=== PATIENT | female | born 1985 | race Two or more races ===

== ENCOUNTER 2023-07-24 04:59 | Day surgery (SDC) | payer OTHER ==
[2023-07-23 10:15] VITALS: BMI 25.9
[2023-07-24] MEDS ORDERED: FENTANYL CITRATE/PF 50 MCG/ML VIAL ONE (11:25)
[2023-07-24] MEDS ORDERED: PROPOFOL 20 ML ONE (11:25)
[2023-07-24] MEDS ORDERED: MIDAZOLAM HCL 2 MG/2 ML SINGLE DOSE VIAL ONE (11:25)
[2023-07-24] MEDS ORDERED: ceFAZolin SODIUM 1 GM VIAL IVPB ONE (11:50)
[2023-07-24] MEDS ORDERED: ceFAZolin SODIUM 1 GM VIAL ONE ×2 (11:51)
[2023-07-24] MEDS ORDERED: DEXAMETHASONE SOD PHOSPHATE 4 MG/1 ML VIAL ONE (11:51)
[2023-07-24] MEDS ORDERED: ONDANSETRON 4 MG/2 ML VIAL ONE (11:51)
[2023-07-24] MEDS ORDERED: KETOROLAC TROMETHAMINE 30 MG/1 ML VIAL ONE (11:51)
[2023-07-24] MEDS ORDERED: LIDOCAINE HCL 1%, 10 MG/ML (20ML VIAL) INF ONE (11:58)
[2023-07-24] MEDS ORDERED: oxyCODONE HCL 5 MG TABLET PO ONE (13:51)
[2023-07-24] MEDS ORDERED: oxyCODONE HCL 10 MG SUSTAINED ACTING TABLET ONE (13:55)
[2023-07-24 14:14] VITALS: RESP 20; TEMP 97.8
[2023-07-24 15:49] VITALS: BP 119/63; PULSE 68
== END 2023-07-24 15:24 | disposition home or self-care (01) ==
LOC: JASU-SURG 04:59
PROVIDERS: ATTEND Surgery
PROC: 0JB70ZZ Excision of Back Subcutaneous Tissue and Fascia, Open Approach (ICD-10-PCS; principal; 2023-07-24 10:00)
DX: D17.1 Benign lipomatous neoplasm of skin and subcutaneous tissue of trunk (principal)
CPT/HCPCS: 88305-TC; 94760